=== PATIENT | female | born 1970 | race Two or more races ===

== ENCOUNTER 2017-12-23 20:13 | Inpatient (IN) | payer OTHER ==
[2017-12-23] MEDS: DEXTROSE 5%-0.45% NACL 1,000 ML IV (22:12)
[2017-12-24] MEDS: KETOROLAC 15 MG INJ IV ×3 (03:13→15:49)
[2017-12-24] MEDS ORDERED: NACL 0.9% 3 ML SYG IV (03:30)
[2017-12-24 05:13] LABS: ADD MAN DIFF? NO
[2017-12-24 05:22] LABS: WHITE BLOOD COUNT 9.5 10^3/ul (4.8-10.8)
[2017-12-24 05:22] LABS: BASOPHILS % 0.3 % (0.0-2.0); EOSINOPHILS # 0.1 10^3/ul (0.0-0.5); EOSINOPHILS % 1.4 % (0.0-7.0); HEMATOCRIT 33.6 % (37.0-47.0); HEMOGLOBIN 11.5 g/dl (12.0-16.0); LYMPHOCYTES # 1.3 10^3/ul (0.8-2.9); LYMPHOCYTES % 13.2 % (15.0-51.0); MEAN CORPUSCULAR HEMOGLOBIN 30.3 pg (29.0-33.0); MEAN CORPUSCULAR HGB CONC 34.2 g/dl (32.0-37.0); MEAN CORPUSCULAR VOLUME 88.4 fl (82.0-101.0); MEAN PLATELET VOLUME 10.7 fl (7.4-10.4); MONOCYTE # 0.6 10^3/ul (0.3-0.9); MONOCYTES % 6.2 % (0.0-11.0); NEUTROPHIL # 7.5 10^3/ul (1.6-7.5); NEUTROPHILS % 78.6 % (39.0-77.0); PLATELET COUNT 310 10^3/UL (140-415); RED CELL DISTRIBUTION WIDTH 16.1 % (11.5-14.5)
[2017-12-24 05:38] LABS: ALANINE AMINOTRANSFERASE 314 IU/L (13-69); ALBUMIN 3.6 g/dl (3.3-4.9); ALKALINE PHOSPHATASE 253 IU/L (42-121); ANION GAP 14 (8-16); ASPARTATE AMINO TRANSFERASE 139 IU/L (15-46); BILIRUBIN,INDIRECT 0.7 mg/dl (0-1.1); BILIRUBIN,TOTAL 2.3 mg/dl (0.2-1.3); BLOOD UREA NITROGEN 6 mg/dl (7-20); CARBON DIOXIDE 23 mmol/L (21-31); CHLORIDE 109 mmol/L (97-110); CREATININE 0.74 mg/dl (0.44-1.00); GLUCOSE 98 mg/dl (70-220); LIPASE 42 U/L (23-300); MAGNESIUM 1.7 mg/dl (1.7-2.5); PHOSPHORUS 3.2 mg/dl (2.5-4.9); POTASSIUM 3.5 mmol/L (3.5-5.1); SODIUM 142 mmol/L (135-144); TOTAL PROTEIN 6.6 g/dl (6.1-8.1)
[2017-12-24] MEDS: DEXTROSE 5%-0.45% NACL 1,000 ML IV ×2 (06:38→17:00)
[2017-12-24] MEDS ORDERED: LORAZEPAM 2 MG INJ IV (14:30)
[2017-12-24] MEDS: KETOROLAC 30 MG INJ IV (20:32)
[2017-12-24] MEDS: MULTIVITAMINS 10 ML, THIAMINE 100 MG, FOLIC ACID 1 MG in SOD CHLORIDE 0.9% 1,000 ML IVPB (20:33)
[2017-12-25] MEDS: morphine 2 MG INJ IV (03:05)
[2017-12-25 05:43] LABS: ADD MAN DIFF? NO
[2017-12-25 05:49] LABS: BASOPHILS % 0.3 % (0.0-2.0); EOSINOPHILS # 0.1 10^3/ul (0.0-0.5); EOSINOPHILS % 0.8 % (0.0-7.0); HEMATOCRIT 33.9 % (37.0-47.0); HEMOGLOBIN 11.6 g/dl (12.0-16.0); LYMPHOCYTES # 1.2 10^3/ul (0.8-2.9); LYMPHOCYTES % 12.6 % (15.0-51.0); MEAN CORPUSCULAR HEMOGLOBIN 30.2 pg (29.0-33.0); MEAN CORPUSCULAR HGB CONC 34.2 g/dl (32.0-37.0); MEAN CORPUSCULAR VOLUME 88.3 fl (82.0-101.0); MONOCYTE # 0.6 10^3/ul (0.3-0.9); MONOCYTES % 6.5 % (0.0-11.0); NEUTROPHIL # 7.8 10^3/ul (1.6-7.5); NEUTROPHILS % 79.4 % (39.0-77.0); PLATELET COUNT 304 10^3/UL (140-415); RED BLOOD COUNT 3.84 10^6/ul (4.20-5.40); RED CELL DISTRIBUTION WIDTH 16.2 % (11.5-14.5)
[2017-12-25 05:49] LABS: WHITE BLOOD COUNT 9.8 10^3/ul (4.8-10.8)
[2017-12-25 06:24] LABS: ALANINE AMINOTRANSFERASE 317 IU/L (13-69); ALBUMIN 3.9 g/dl (3.3-4.9); ALKALINE PHOSPHATASE 275 IU/L (42-121); ASPARTATE AMINO TRANSFERASE 199 IU/L (15-46); BILIRUBIN,TOTAL 3.2 mg/dl (0.2-1.3); TOTAL PROTEIN 7.2 g/dl (6.1-8.1)
[2017-12-25 06:40] LABS: ANION GAP 15 (8-16); BLOOD UREA NITROGEN 5 mg/dl (7-20); CALCIUM 9.4 mg/dl (8.4-10.2); CARBON DIOXIDE 24 mmol/L (21-31); CHLORIDE 107 mmol/L (97-110); CREATININE 0.64 mg/dl (0.44-1.00); GLUCOSE 88 mg/dl (70-220); MAGNESIUM 1.6 mg/dl (1.7-2.5); PHOSPHORUS 3.5 mg/dl (2.5-4.9); POTASSIUM 3.9 mmol/L (3.5-5.1); SODIUM 142 mmol/L (135-144)
[2017-12-25] MEDS: DEXTROSE 5%-0.45% NACL 1,000 ML IV ×3 (09:14→22:06)
[2017-12-25] MEDS: hydrALAzine 20 MG INJ IV (09:15)
[2017-12-25] MEDS: MAGNESIUM SULFATE 2 GM/50 ML 50 ML IVPB (10:38)
[2017-12-25] MEDS: KETOROLAC 30 MG INJ IV ×3 (10:39→22:12)
[2017-12-25 20:05] LABS: HEPATITIS B SURFACE ANTIGEN NEGATIVE (NEGATIVE)
[2017-12-25 20:22] LABS: HEPATITIS B SURFACE ANTIBODY NEGATIVE (NEGATIVE)
[2017-12-25 20:22] LABS: HEPATITIS C VIRAL ANTIBODY NEGATIVE (NEGATIVE)
[2017-12-25] MEDS: MULTIVITAMINS 10 ML, THIAMINE 100 MG, FOLIC ACID 1 MG in SOD CHLORIDE 0.9% 1,000 ML IVPB (20:26)
[2017-12-26] MEDS: morphine 2 MG INJ IV ×2 (02:59→13:22)
[2017-12-26] MEDS: DEXTROSE 5%-0.45% NACL 1,000 ML IV ×3 (04:49→23:57)
[2017-12-26 04:57] LABS: ADD MAN DIFF? NO
[2017-12-26 05:18] LABS: WHITE BLOOD COUNT 6.9 10^3/ul (4.8-10.8)
[2017-12-26 05:18] LABS: BASOPHILS % 0.4 % (0.0-2.0); EOSINOPHILS # 0.1 10^3/ul (0.0-0.5); EOSINOPHILS % 1.9 % (0.0-7.0); HEMATOCRIT 32.1 % (37.0-47.0); HEMOGLOBIN 11.2 g/dl (12.0-16.0); LYMPHOCYTES # 1.3 10^3/ul (0.8-2.9); LYMPHOCYTES % 18.2 % (15.0-51.0); MEAN CORPUSCULAR HEMOGLOBIN 30.3 pg (29.0-33.0); MEAN CORPUSCULAR HGB CONC 34.9 g/dl (32.0-37.0); MEAN CORPUSCULAR VOLUME 86.8 fl (82.0-101.0); MEAN PLATELET VOLUME 10.8 fl (7.4-10.4); MONOCYTE # 0.6 10^3/ul (0.3-0.9); MONOCYTES % 8.9 % (0.0-11.0); NEUTROPHIL # 4.8 10^3/ul (1.6-7.5); NEUTROPHILS % 70.2 % (39.0-77.0); PLATELET COUNT 304 10^3/UL (140-415); RED CELL DISTRIBUTION WIDTH 15.9 % (11.5-14.5)
[2017-12-26 05:47] LABS: ALANINE AMINOTRANSFERASE 302 IU/L (13-69); ALBUMIN 3.3 g/dl (3.3-4.9); ALKALINE PHOSPHATASE 282 IU/L (42-121); ANION GAP 15 (8-16); ASPARTATE AMINO TRANSFERASE 209 IU/L (15-46); BILIRUBIN,TOTAL 2.9 mg/dl (0.2-1.3); BLOOD UREA NITROGEN 5 mg/dl (7-20); CALCIUM 8.7 mg/dl (8.4-10.2); CARBON DIOXIDE 25 mmol/L (21-31); CHLORIDE 109 mmol/L (97-110); CREATININE 0.61 mg/dl (0.44-1.00); GLUCOSE 92 mg/dl (70-220); POTASSIUM 3.6 mmol/L (3.5-5.1); SODIUM 145 mmol/L (135-144); TOTAL PROTEIN 6.6 g/dl (6.1-8.1)
[2017-12-26] MEDS ORDERED: LIDOCAINE 2% (SDV) 5 ML INJ (07:00)
[2017-12-26] MEDS ORDERED: ONDANSETRON 4 MG INJ (07:00)
[2017-12-26] MEDS: MULTIVITAMINS 10 ML, THIAMINE 100 MG, FOLIC ACID 1 MG in SOD CHLORIDE 0.9% 1,000 ML IVPB (15:07)
[2017-12-26] MEDS ORDERED: IOHEXOL 300MG/ML 30 ML BTL (16:38)
[2017-12-26] MEDS ORDERED: EPHEDrine SULFATE 50 MG/5 ML SYG IV (17:00)
[2017-12-26] MEDS ORDERED: ONDANSETRON 4 MG INJ IV (17:00)
[2017-12-26] MEDS ORDERED: LABETALOL HCL 20MG INJ IV (17:00)
[2017-12-26] MEDS ORDERED: KETOROLAC 30 MG INJ IV (17:00)
[2017-12-26] MEDS ORDERED: METOCLOPRAMIDE 10 MG INJ IV (17:00)
[2017-12-26] MEDS ORDERED: DIPHENHYDRAMINE 50 MG INJ IV (17:00)
[2017-12-26] MEDS ORDERED: OXYCODONE/ACETAMINOPHEN (5/325) TAB PO ×2 (17:00)
[2017-12-26] MEDS ORDERED: FENTAnyl 50 MCG/ML VIAL IV ×3 (17:00)
[2017-12-26] MEDS ORDERED: HYDROmorphONE (0.2 MG/ML) 10ML SYG IV ×3 (17:00)
[2017-12-26] MEDS ORDERED: hydrALAzine 20 MG INJ IV (17:00)
[2017-12-26] MEDS ORDERED: ALBUTEROL 0.083% (NEB) 2.5 MG/3 ML AMP HHN (17:00)
[2017-12-26] MEDS ORDERED: MIDAZOLAM 1 MG/ML 2 ML INJ IV (17:00)
[2017-12-26] MEDS ORDERED: MEPERIDINE 25 MG INJ IV (17:00)
[2017-12-26] MEDS ORDERED: PROPOFOL 100 ML (17:03)
[2017-12-26] MEDS ORDERED: ROCURONIUM 50 MG INJ (17:05)
[2017-12-26] MEDS ORDERED: DEXAMETHASONE 4 MG/ML 1 ML INJ (17:56)
[2017-12-26] MEDS ORDERED: KETOROLAC 30 MG INJ (18:14)
[2017-12-26] MEDS ORDERED: SUGAMMADEX SODIUM 200 MG/2 ML VIAL IV (18:15)
[2017-12-26 22:53] LABS: INR 0.89; PROTIME 12.1 Sec (11.9-14.9); PT RATIO 0.9
[2017-12-27] MEDS: DEXTROSE 5%-0.45% NACL 1,000 ML IV ×2 (05:00→15:00)
[2017-12-27 05:11] LABS: ADD MAN DIFF? NO
[2017-12-27 05:18] LABS: BASOPHILS % 0.1 % (0.0-2.0); HEMATOCRIT 32.2 % (37.0-47.0); HEMOGLOBIN 10.8 g/dl (12.0-16.0); LYMPHOCYTES # 0.8 10^3/ul (0.8-2.9); LYMPHOCYTES % 9.1 % (15.0-51.0); MEAN CORPUSCULAR HEMOGLOBIN 29.5 pg (29.0-33.0); MEAN CORPUSCULAR HGB CONC 33.5 g/dl (32.0-37.0); MEAN PLATELET VOLUME 11.3 fl (7.4-10.4); MONOCYTE # 0.4 10^3/ul (0.3-0.9); MONOCYTES % 3.9 % (0.0-11.0); NEUTROPHIL # 7.8 10^3/ul (1.6-7.5); NEUTROPHILS % 86.5 % (39.0-77.0); PLATELET COUNT 329 10^3/UL (140-415); RED BLOOD COUNT 3.66 10^6/ul (4.20-5.40); RED CELL DISTRIBUTION WIDTH 16.4 % (11.5-14.5)
[2017-12-27 05:32] LABS: ALANINE AMINOTRANSFERASE 263 IU/L (13-69); ALBUMIN 3.3 g/dl (3.3-4.9); ALKALINE PHOSPHATASE 255 IU/L (42-121); ANION GAP 15 (8-16); ASPARTATE AMINO TRANSFERASE 148 IU/L (15-46); BILIRUBIN,INDIRECT 0.7 mg/dl (0-1.1); BILIRUBIN,TOTAL 1.6 mg/dl (0.2-1.3); BLOOD UREA NITROGEN 6 mg/dl (7-20); CALCIUM 9.1 mg/dl (8.4-10.2); CARBON DIOXIDE 26 mmol/L (21-31); CHLORIDE 108 mmol/L (97-110); CREATININE 0.63 mg/dl (0.44-1.00); GLUCOSE 139 mg/dl (70-220); MAGNESIUM 1.7 mg/dl (1.7-2.5); POTASSIUM 3.9 mmol/L (3.5-5.1); SODIUM 145 mmol/L (135-144); TOTAL PROTEIN 6.6 g/dl (6.1-8.1)
[2017-12-27] MEDS ORDERED: EPHEDrine SULFATE 50 MG/5 ML SYG (07:00)
[2017-12-27] MEDS: MULTIVITAMINS 10 ML, THIAMINE 100 MG, FOLIC ACID 1 MG in SOD CHLORIDE 0.9% 1,000 ML IVPB (09:21)
[2017-12-27] MEDS ORDERED: PROCHLORPERAZINE 10 MG INJ IV (12:00)
[2017-12-27] MEDS ORDERED: ONDANSETRON 4 MG INJ IV (12:00)
[2017-12-27] MEDS ORDERED: HYDROmorphONE (0.2 MG/ML) 10ML SYG IV ×3 (12:00)
[2017-12-27] MEDS ORDERED: DIPHENHYDRAMINE 50 MG INJ IV (12:00)
[2017-12-27] MEDS ORDERED: FENTAnyl 50 MCG/ML VIAL IV ×3 (12:00)
[2017-12-27] MEDS ORDERED: MEPERIDINE 25 MG INJ IV (12:00)
[2017-12-27] MEDS ORDERED: IOHEXOL 300MG/ML 30 ML BTL (12:07)
[2017-12-27] MEDS ORDERED: PROPOFOL 20 ML (12:29)
[2017-12-27] MEDS ORDERED: LIDOCAINE 2% (SDV) 5 ML INJ (12:29)
[2017-12-27] MEDS ORDERED: FENTAnyl 50 MCG/ML VIAL (12:29)
[2017-12-27] MEDS ORDERED: MIDAZOLAM 1 MG/ML 2 ML INJ (12:29)
[2017-12-27] MEDS ORDERED: SUCCINYLCHOLINE CHLORIDE 100 MG/5 ML SYG IV (12:29)
[2017-12-27] MEDS ORDERED: ROPIVACAINE 0.5 % 30 ML VIAL (12:37)
[2017-12-27] MEDS ORDERED: metroNIDAZOLE 500 MG/NS (PMX) 100 ML IVPB (12:58)
[2017-12-27] MEDS ORDERED: CEFAZOLIN 1 GM INJ (12:58)
[2017-12-27] MEDS ORDERED: FAMOTIDINE 20 MG INJ (13:01)
[2017-12-27] MEDS ORDERED: DEXAMETHASONE 4 MG/ML 1 ML INJ (13:01)
[2017-12-27] MEDS ORDERED: ONDANSETRON 4 MG INJ (13:01)
[2017-12-27] MEDS ORDERED: ACETAMINOPHEN 1000MG/100ML IV 100 ML (13:01)
[2017-12-27] MEDS ORDERED: SUGAMMADEX SODIUM 200 MG/2 ML VIAL IV (13:12)
[2017-12-27] MEDS ORDERED: hydrALAzine 20 MG INJ (13:29)
[2017-12-27] MEDS ORDERED: KETOROLAC 30 MG INJ (13:42)
[2017-12-27] MEDS ORDERED: HYDROmorphONE 2 MG/ML SYG (13:48)
[2017-12-27] MEDS ORDERED: HYDROCODONE/APAP (5/325) TAB PO (14:00)
[2017-12-27] MEDS: BUPIVACAINE 0.25% (MPF) 30 ML INJ (14:13)
[2017-12-27] MEDS: LIDOCAINE 1%/EPI 30 ML INJ (14:14)
[2017-12-27] MEDS: HYDROCODONE/APAP (5/325) TAB PO (20:18)
[2017-12-28] MEDS: DEXTROSE 5%-0.45% NACL 1,000 ML IV ×3 (00:36→21:00)
[2017-12-28] MEDS: HYDROCODONE/APAP (5/325) TAB PO ×2 (03:59→16:04)
[2017-12-28 05:12] LABS: ADD MAN DIFF? NO
[2017-12-28 05:18] LABS: BASOPHILS % 0.3 % (0.0-2.0); EOSINOPHILS % 0.2 % (0.0-7.0); HEMATOCRIT 28.8 % (37.0-47.0); HEMOGLOBIN 9.9 g/dl (12.0-16.0); LYMPHOCYTES % 18.9 % (15.0-51.0); MEAN CORPUSCULAR HEMOGLOBIN 31.5 pg (29.0-33.0); MEAN CORPUSCULAR HGB CONC 34.4 g/dl (32.0-37.0); MEAN CORPUSCULAR VOLUME 91.7 fl (82.0-101.0); MEAN PLATELET VOLUME 11.2 fl (7.4-10.4); MONOCYTE # 0.6 10^3/ul (0.3-0.9); MONOCYTES % 5.7 % (0.0-11.0); NEUTROPHIL # 7.9 10^3/ul (1.6-7.5); NEUTROPHILS % 74.4 % (39.0-77.0); PLATELET COUNT 308 10^3/UL (140-415); RED BLOOD COUNT 3.14 10^6/ul (4.20-5.40); RED CELL DISTRIBUTION WIDTH 17.5 % (11.5-14.5)
[2017-12-28 05:18] LABS: WHITE BLOOD COUNT 10.6 10^3/ul (4.8-10.8)
[2017-12-28 05:52] LABS: ALANINE AMINOTRANSFERASE 204 IU/L (13-69); ALBUMIN 3.2 g/dl (3.3-4.9); ALKALINE PHOSPHATASE 197 IU/L (42-121); ANION GAP 16 (8-16); ASPARTATE AMINO TRANSFERASE 105 IU/L (15-46); BILIRUBIN,INDIRECT 0.3 mg/dl (0-1.1); BILIRUBIN,TOTAL 0.3 mg/dl (0.2-1.3); BLOOD UREA NITROGEN 5 mg/dl (7-20); CALCIUM 8.9 mg/dl (8.4-10.2); CARBON DIOXIDE 26 mmol/L (21-31); CHLORIDE 109 mmol/L (97-110); CREATININE 0.67 mg/dl (0.44-1.00); GLUCOSE 123 mg/dl (70-220); MAGNESIUM 1.6 mg/dl (1.7-2.5); POTASSIUM 3.7 mmol/L (3.5-5.1); SODIUM 147 mmol/L (135-144); TOTAL PROTEIN 6.1 g/dl (6.1-8.1)
[2017-12-28] MEDS: MULTIVITAMINS 10 ML, THIAMINE 100 MG, FOLIC ACID 1 MG in SOD CHLORIDE 0.9% 1,000 ML IVPB (08:26)
[2017-12-28] MEDS: morphine 2 MG INJ IV (11:08)
[2017-12-28] MEDS: ACYCLOVIR 400 MG TAB PO (20:32)
[2017-12-28] MEDS: HYDROmorphONE 0.5 MG/0.5 ML SYG IV (20:38)
[2017-12-29] MEDS: HYDROCODONE/APAP (5/325) TAB PO ×2 (00:33→09:34)
[2017-12-29 05:36] LABS: ADD MAN DIFF? NO
[2017-12-29 05:46] LABS: BASOPHILS % 0.3 % (0.0-2.0); EOSINOPHILS # 0.1 10^3/ul (0.0-0.5); HEMATOCRIT 28.7 % (37.0-47.0); HEMOGLOBIN 9.5 g/dl (12.0-16.0); LYMPHOCYTES # 2.4 10^3/ul (0.8-2.9); LYMPHOCYTES % 26.7 % (15.0-51.0); MEAN CORPUSCULAR HEMOGLOBIN 30.1 pg (29.0-33.0); MEAN CORPUSCULAR HGB CONC 33.1 g/dl (32.0-37.0); MEAN CORPUSCULAR VOLUME 90.8 fl (82.0-101.0); MEAN PLATELET VOLUME 11.5 fl (7.4-10.4); MONOCYTE # 0.5 10^3/ul (0.3-0.9); MONOCYTES % 5.6 % (0.0-11.0); NEUTROPHILS % 66.1 % (39.0-77.0); PLATELET COUNT 322 10^3/UL (140-415); RED BLOOD COUNT 3.16 10^6/ul (4.20-5.40); RED CELL DISTRIBUTION WIDTH 17.2 % (11.5-14.5)
[2017-12-29 06:21] LABS: ALANINE AMINOTRANSFERASE 170 IU/L (13-69); ALBUMIN 3.2 g/dl (3.3-4.9); ALKALINE PHOSPHATASE 180 IU/L (42-121); ANION GAP 15 (8-16); ASPARTATE AMINO TRANSFERASE 72 IU/L (15-46); BILIRUBIN,INDIRECT 0.4 mg/dl (0-1.1); BILIRUBIN,TOTAL 0.4 mg/dl (0.2-1.3); BLOOD UREA NITROGEN 9 mg/dl (7-20); CALCIUM 8.9 mg/dl (8.4-10.2); CARBON DIOXIDE 25 mmol/L (21-31); CHLORIDE 107 mmol/L (97-110); CREATININE 0.62 mg/dl (0.44-1.00); GLUCOSE 81 mg/dl (70-220); MAGNESIUM 1.5 mg/dl (1.7-2.5); POTASSIUM 3.8 mmol/L (3.5-5.1); SODIUM 143 mmol/L (135-144); TOTAL PROTEIN 6.1 g/dl (6.1-8.1)
[2017-12-29] MEDS: DEXTROSE 5%-0.45% NACL 1,000 ML IV (06:52)
[2017-12-29] MEDS: ACYCLOVIR 400 MG TAB PO (09:34)
[2017-12-29] MEDS: LACTULOSE 30ML CUP PO (09:34)
[2017-12-29] MEDS: MULTIVITAMINS 10 ML, THIAMINE 100 MG, FOLIC ACID 1 MG in SOD CHLORIDE 0.9% 1,000 ML IVPB (09:37)
[2017-12-29] MEDS: ONDANSETRON 4 MG INJ IV (09:42)
== END 2017-12-29 19:30 | disposition home or self-care (01) | DRG 419 ==
LOC: MS1 20:13
PROC: 0FT44ZZ Resection of Gallbladder, Percutaneous Endoscopic Approach (ICD-10-PCS; principal; 2017-12-26 17:15)
PROC: 0FB04ZX Excision of Liver, Percutaneous Endoscopic Approach, Diagnostic (ICD-10-PCS; 2017-12-26 17:15)
PROC: 0FC98ZZ Extirpation of Matter from Common Bile Duct, Via Natural or Artificial Opening Endoscopic (ICD-10-PCS; 2017-12-26 17:15)
PROC: 0F798ZZ Dilation of Common Bile Duct, Via Natural or Artificial Opening Endoscopic (ICD-10-PCS; 2017-12-26 17:15)
DX: K80.70 Calculus of gallbladder and bile duct without cholecystitis without obstruction (principal); F32.9 Major depressive disorder, single episode, unspecified; F41.9 Anxiety disorder, unspecified; F10.10 Alcohol abuse, uncomplicated; R79.89 Other specified abnormal findings of blood chemistry; Z72.0 Tobacco use; E80.6 Other disorders of bilirubin metabolism
CPT/HCPCS: 71045; 74181; 74330; 80048; 80053; 80076; 83690; 83735; 84100; 84703; 85025; 85610; 86706; 86803; 87340; 88304; 88307; 88313

== ENCOUNTER 2019-05-13 03:25 | Inpatient (IN) | payer OTHER, MEDICAID ==
[2019-05-13] MEDS: ONDANSETRON 4 MG INJ IV (03:59)
[2019-05-13] MEDS: SOD CHLORIDE 0.9% 1,000 ML IV (03:59)
[2019-05-13] MEDS: HYDROmorphONE 1 MG/ML SYG IV ×5 (03:59→23:04)
[2019-05-13] MEDS: PIPER-TAZO 3.375 GM IV (PMX) 100 ML IVPB (04:00)
[2019-05-13 04:05] LABS: ADD MAN DIFF? NO
[2019-05-13 04:08] LABS: BASOPHILS % 0.3 % (0.0-2.0); EOSINOPHILS # 0.1 10^3/ul (0.0-0.5); EOSINOPHILS % 0.8 % (0.0-7.0); HEMOGLOBIN 12.3 g/dl (12.0-16.0); LYMPHOCYTES # 1.7 10^3/ul (0.8-2.9); LYMPHOCYTES % 14.6 % (15.0-51.0); MEAN CORPUSCULAR HEMOGLOBIN 30.8 pg (29.0-33.0); MEAN CORPUSCULAR HGB CONC 32.4 g/dl (32.0-37.0); MEAN CORPUSCULAR VOLUME 95.2 fl (82.0-101.0); MEAN PLATELET VOLUME 10.3 fl (7.4-10.4); MONOCYTE # 0.7 10^3/ul (0.3-0.9); NEUTROPHIL # 8.9 10^3/ul (1.6-7.5); NEUTROPHILS % 77.8 % (39.0-77.0); PLATELET COUNT 336 10^3/UL (140-415); RED BLOOD COUNT 3.99 10^6/ul (4.20-5.40); RED CELL DISTRIBUTION WIDTH 16.3 % (11.5-14.5)
[2019-05-13 04:08] LABS: WHITE BLOOD COUNT 11.4 10^3/ul (4.8-10.8)
[2019-05-13 04:29] LABS: ALANINE AMINOTRANSFERASE 14 IU/L (13-69); ALBUMIN 3.8 g/dl (3.3-4.9); ALBUMIN/GLOBULIN RATIO 1.08; ALKALINE PHOSPHATASE 58 IU/L (42-121); ANION GAP 8 (5-13); ASPARTATE AMINO TRANSFERASE 21 IU/L (15-46); BILIRUBIN,INDIRECT 0.3 mg/dl (0-1.1); BILIRUBIN,TOTAL 0.3 mg/dl (0.2-1.3); BLOOD UREA NITROGEN 14 mg/dl (7-20); CALCIUM 9.6 mg/dl (8.4-10.2); CARBON DIOXIDE 23 mmol/L (21-31); CHLORIDE 109 mmol/L (97-110); CREATININE 0.89 mg/dl (0.44-1.00); Estimated GFR > 60 mL/min (>60); GLUCOSE 105 mg/dl (70-220); LIPASE 131 U/L (23-300); POTASSIUM 4.1 mmol/L (3.5-5.1); SODIUM 140 mmol/L (135-144); TOTAL PROTEIN 7.3 g/dl (6.1-8.1)
[2019-05-13] MEDS ORDERED: ACETAMINOPHEN 325 MG TAB PO ×2 (06:00→07:30)
[2019-05-13] MEDS ORDERED: ONDANSETRON 4 MG INJ IV ×2 (06:00→07:30)
[2019-05-13] MEDS ORDERED: HYDROCODONE/APAP (5/325) TAB PO ×2 (07:30)
[2019-05-13] MEDS ORDERED: NACL 0.9% 3 ML SYG IV (07:30)
[2019-05-13] MEDS: HEPARIN 5,000 UNIT/1 ML VIAL SC ×2 (10:13→20:09)
[2019-05-13] MEDS: VANCOMYCIN 1.25 GM IN 0.9 % SOD CHLORIDE 250 ML IVPB (10:13)
[2019-05-13] MEDS: CEFEPIME 1GM/50 ML (PMX) 50 ML IVPB (20:06)
[2019-05-13] MEDS: VANCOMYCIN 750 MG (PMX) 250 ML IVPB (21:36)
[2019-05-14 00:50] LABS: ADD UMIC NO; UR ASCORBIC ACID NEGATIVE (NEGATIVE); UR BILIRUBIN (Dip) NEGATIVE (NEGATIVE); UR BLOOD (Dip) NEGATIVE (NEGATIVE); UR CLARITY CLEAR (CLEAR); UR COLOR YELLOW (YELLOW); UR GLUCOSE (Dip) NEGATIVE (NEGATIVE); UR KETONES (Dip) NEGATIVE (NEGATIVE); UR LEUKOCYTE ESTERASE (Dip) NEGATIVE Leu/ul (NEGATIVE); UR NITRITE (Dip) NEGATIVE (NEGATIVE); UR SPECIFIC GRAVITY (Dip) 1.017 (1.003-1.030); UR TOTAL PROTEIN (Dip) NEGATIVE (NEGATIVE); UR UROBILINOGEN (Dip) NEGATIVE (NEGATIVE)
[2019-05-14] MEDS: HYDROmorphONE 1 MG/ML SYG IV ×7 (03:07→23:10)
[2019-05-14 03:23] LABS: BARBITURATES Negative (NEGATIVE); BENZODIAZEPINES Negative (NEGATIVE); CANNABINOIDS Negative (NEGATIVE); COCAINE Negative (NEGATIVE); OPIATES Positive (NEGATIVE)
[2019-05-14 03:30] LABS: AMPHETAMINE/METHAMPHETAMINE POSITIVE (NEGATIVE)
[2019-05-14 06:02] LABS: ADD MAN DIFF? NO
[2019-05-14 06:11] LABS: WHITE BLOOD COUNT 10.4 10^3/ul (4.8-10.8)
[2019-05-14 06:11] LABS: BASOPHILS % 0.4 % (0.0-2.0); EOSINOPHILS # 0.1 10^3/ul (0.0-0.5); EOSINOPHILS % 0.8 % (0.0-7.0); HEMATOCRIT 35.5 % (37.0-47.0); HEMOGLOBIN 11.1 g/dl (12.0-16.0); LYMPHOCYTES # 1.5 10^3/ul (0.8-2.9); LYMPHOCYTES % 14.6 % (15.0-51.0); MEAN CORPUSCULAR HEMOGLOBIN 30.4 pg (29.0-33.0); MEAN CORPUSCULAR HGB CONC 31.3 g/dl (32.0-37.0); MEAN CORPUSCULAR VOLUME 97.3 fl (82.0-101.0); MEAN PLATELET VOLUME 10.1 fl (7.4-10.4); MONOCYTE # 0.7 10^3/ul (0.3-0.9); MONOCYTES % 6.4 % (0.0-11.0); NEUTROPHIL # 8.1 10^3/ul (1.6-7.5); NEUTROPHILS % 77.4 % (39.0-77.0); PLATELET COUNT 336 10^3/UL (140-415); RED BLOOD COUNT 3.65 10^6/ul (4.20-5.40); RED CELL DISTRIBUTION WIDTH 16.3 % (11.5-14.5)
[2019-05-14 06:53] LABS: ALANINE AMINOTRANSFERASE 16 IU/L (13-69); ALBUMIN 3.3 g/dl (3.3-4.9); ALBUMIN/GLOBULIN RATIO 1.13; ALKALINE PHOSPHATASE 60 IU/L (42-121); ANION GAP 7 (5-13); ASPARTATE AMINO TRANSFERASE 29 IU/L (15-46); BILIRUBIN,INDIRECT 0.3 mg/dl (0-1.1); BILIRUBIN,TOTAL 0.3 mg/dl (0.2-1.3); BLOOD UREA NITROGEN 10 mg/dl (7-20); CALCIUM 9.2 mg/dl (8.4-10.2); CARBON DIOXIDE 26 mmol/L (21-31); CHLORIDE 104 mmol/L (97-110); CREATININE 0.68 mg/dl (0.44-1.00); Estimated GFR > 60 mL/min (>60); GLUCOSE 116 mg/dl (70-220); MAGNESIUM 1.7 mg/dl (1.7-2.5); PHOSPHORUS 3.9 mg/dl (2.5-4.9); SODIUM 137 mmol/L (135-144); TOTAL PROTEIN 6.2 g/dl (6.1-8.1)
[2019-05-14] MEDS ORDERED: VANCOMYCIN IV PER PHARMACY XX (09:00)
[2019-05-14] MEDS: CEFEPIME 1GM/50 ML (PMX) 50 ML IVPB ×2 (09:16→21:04)
[2019-05-14] MEDS: HEPARIN 5,000 UNIT/1 ML VIAL SC (09:17)
[2019-05-14] MEDS: VANCOMYCIN 750 MG (PMX) 250 ML IVPB ×2 (10:31→22:15)
[2019-05-14] MEDS ORDERED: ALPRAZOLAM 0.5 MG TAB PO (14:00)
[2019-05-14 14:22] LABS: CA27.29 82 U/mL (<38)
[2019-05-14] MEDS: MUPIROCIN 2% 22 GM OINT TOP (21:04)
[2019-05-14 21:16] LABS: VANCOMYCIN,TROUGH 10.5 ug/ml (10.0-20.0)
[2019-05-15] MEDS: HYDROmorphONE 1 MG/ML SYG IV ×7 (02:04→23:46)
[2019-05-15 05:36] LABS: ADD MAN DIFF? NO
[2019-05-15 05:42] LABS: WHITE BLOOD COUNT 8.9 10^3/ul (4.8-10.8)
[2019-05-15 05:42] LABS: BASOPHIL # 0.1 10^3/ul (0.0-0.1); BASOPHILS % 0.6 % (0.0-2.0); EOSINOPHILS # 0.1 10^3/ul (0.0-0.5); EOSINOPHILS % 1.2 % (0.0-7.0); HEMATOCRIT 37.5 % (37.0-47.0); HEMOGLOBIN 11.7 g/dl (12.0-16.0); LYMPHOCYTES # 1.6 10^3/ul (0.8-2.9); LYMPHOCYTES % 18.1 % (15.0-51.0); MEAN CORPUSCULAR HGB CONC 31.2 g/dl (32.0-37.0); MEAN CORPUSCULAR VOLUME 96.2 fl (82.0-101.0); MEAN PLATELET VOLUME 10.1 fl (7.4-10.4); MONOCYTE # 0.6 10^3/ul (0.3-0.9); MONOCYTES % 6.8 % (0.0-11.0); NEUTROPHIL # 6.5 10^3/ul (1.6-7.5); NEUTROPHILS % 72.8 % (39.0-77.0); PLATELET COUNT 357 10^3/UL (140-415); RED CELL DISTRIBUTION WIDTH 15.9 % (11.5-14.5)
[2019-05-15 05:59] LABS: ANION GAP 7 (5-13); BLOOD UREA NITROGEN 15 mg/dl (7-20); CALCIUM 9.5 mg/dl (8.4-10.2); CARBON DIOXIDE 31 mmol/L (21-31); CHLORIDE 103 mmol/L (97-110); CREATININE 0.74 mg/dl (0.44-1.00); Estimated GFR > 60 mL/min (>60); GLUCOSE 116 mg/dl (70-220); POTASSIUM 3.8 mmol/L (3.5-5.1); SODIUM 141 mmol/L (135-144)
[2019-05-15] MEDS: MUPIROCIN 2% 22 GM OINT TOP ×2 (08:49→20:41)
[2019-05-15] MEDS: CEFEPIME 1GM/50 ML (PMX) 50 ML IVPB (08:49)
[2019-05-15] MEDS: VANCOMYCIN 750 MG (PMX) 250 ML IVPB ×2 (09:40→20:32)
[2019-05-15] MEDS: RIFAMPIN 300 MG CAP PO (13:11)
[2019-05-15] MEDS: DIPHENHYDRAMINE 25 MG CAP PO (20:32)
[2019-05-16] MEDS: HYDROmorphONE 1 MG/ML SYG IV ×6 (02:47→20:32)
[2019-05-16] MEDS: DIPHENHYDRAMINE 25 MG CAP PO ×2 (09:00→16:59)
[2019-05-16] MEDS: RIFAMPIN 300 MG CAP PO (09:00)
[2019-05-16] MEDS: MUPIROCIN 2% 22 GM OINT TOP ×2 (09:01→22:06)
[2019-05-16] MEDS: VANCOMYCIN 750 MG (PMX) 250 ML IVPB ×2 (09:01→21:46)
[2019-05-16] MEDS: BISACODYL (EC) 5 MG TAB PO (21:46)
[2019-05-16] MEDS: SENNA TAB PO (21:46)
[2019-05-17] MEDS: HYDROmorphONE 1 MG/ML SYG IV ×4 (00:06→09:21)
[2019-05-17] MEDS: DIPHENHYDRAMINE 25 MG CAP PO (08:51)
[2019-05-17] MEDS: SENNA TAB PO (08:52)
[2019-05-17] MEDS: RIFAMPIN 300 MG CAP PO (08:52)
[2019-05-17] MEDS: MUPIROCIN 2% 22 GM OINT TOP (09:21)
[2019-05-17] MEDS: VANCOMYCIN 750 MG (PMX) 250 ML IVPB (09:30)
[2019-05-17 09:38] LABS: BLOOD UREA NITROGEN 14 mg/dl (7-20)
[2019-05-17 09:38] LABS: CREATININE 0.76 mg/dl (0.44-1.00)
[2019-05-17 09:45] LABS: VANCOMYCIN,TROUGH 10.7 ug/ml (10.0-20.0)
== END 2019-05-17 11:55 | disposition home or self-care (01) | DRG 603 ==
LOC: E/R 03:25 → MS3 05-14 14:43
PROVIDERS: Internal Medicine
DX: L03.313 Cellulitis of chest wall (principal); C50.911 Malignant neoplasm of unspecified site of right female breast; C79.89 Secondary malignant neoplasm of other specified sites; B95.62 Methicillin resistant Staphylococcus aureus infection as the cause of diseases classified elsewhere; F41.9 Anxiety disorder, unspecified; F32.9 Major depressive disorder, single episode, unspecified; R59.1 Generalized enlarged lymph nodes
CPT/HCPCS: 36415; 71250; 76536; 76642; 80048; 80053; 80202; 80307; 81003; 82378; 82565; 83690; 83735; 84100; 84520; 85025; 86300; 87040-91; 87070; 87081; 96374; 96375; 99285-25

== ENCOUNTER 2019-07-04 02:01 | Emergency (ER) | payer OTHER, MEDICAID ==
[2019-07-04] MEDS: LACTATED RINGER'S 1,000 ML IV (03:52)
[2019-07-04] MEDS: HYDROmorphONE 1 MG/ML SYG IV (03:53)
[2019-07-04] MEDS: ONDANSETRON 4 MG INJ IV (03:53)
[2019-07-04 04:07] LABS: ADD MAN DIFF? NO
[2019-07-04 04:11] LABS: WHITE BLOOD COUNT 6.4 10^3/ul (4.8-10.8)
[2019-07-04 04:11] LABS: BASOPHILS % 0.6 % (0.0-2.0); EOSINOPHILS # 0.1 10^3/ul (0.0-0.5); EOSINOPHILS % 1.4 % (0.0-7.0); HEMATOCRIT 38.8 % (37.0-47.0); HEMOGLOBIN 12.6 g/dl (12.0-16.0); LYMPHOCYTES # 2.3 10^3/ul (0.8-2.9); LYMPHOCYTES % 36.2 % (15.0-51.0); MEAN CORPUSCULAR HEMOGLOBIN 30.7 pg (29.0-33.0); MEAN CORPUSCULAR HGB CONC 32.5 g/dl (32.0-37.0); MEAN CORPUSCULAR VOLUME 94.4 fl (82.0-101.0); MEAN PLATELET VOLUME 10.1 fl (7.4-10.4); MONOCYTE # 0.5 10^3/ul (0.3-0.9); MONOCYTES % 7.5 % (0.0-11.0); NEUTROPHIL # 3.5 10^3/ul (1.6-7.5); NEUTROPHILS % 54.1 % (39.0-77.0); PLATELET COUNT 331 10^3/UL (140-415); RED BLOOD COUNT 4.11 10^6/ul (4.20-5.40); RED CELL DISTRIBUTION WIDTH 14.3 % (11.5-14.5)
[2019-07-04 04:13] LABS: ADD UMIC YES; UR ASCORBIC ACID NEGATIVE (NEGATIVE); UR BACTERIA FEW /HPF (NONE SEEN); UR BILIRUBIN (Dip) NEGATIVE (NEGATIVE); UR BLOOD (Dip) NEGATIVE (NEGATIVE); UR CLARITY SLIGHTLY CLOUDY (CLEAR); UR COLOR YELLOW (YELLOW); UR GLUCOSE (Dip) NEGATIVE (NEGATIVE); UR KETONES (Dip) NEGATIVE (NEGATIVE); UR LEUKOCYTE ESTERASE (Dip) TRACE Leu/ul (NEGATIVE); UR NITRITE (Dip) NEGATIVE (NEGATIVE); UR RBC 0 /HPF (0-5); UR SPECIFIC GRAVITY (Dip) 1.009 (1.003-1.030); UR SQUAMOUS EPITHELIAL CELL FEW /HPF (FEW); UR TOTAL PROTEIN (Dip) NEGATIVE (NEGATIVE); UR UROBILINOGEN (Dip) NEGATIVE (NEGATIVE); UR WBC 10 /HPF (0-5)
[2019-07-04 04:29] LABS: ALANINE AMINOTRANSFERASE 13 IU/L (13-69); ALBUMIN 3.8 g/dl (3.3-4.9); ALBUMIN/GLOBULIN RATIO 1.11; ALKALINE PHOSPHATASE 68 IU/L (42-121); ANION GAP 5 (5-13); ASPARTATE AMINO TRANSFERASE 27 IU/L (15-46); BILIRUBIN,INDIRECT 0.2 mg/dl (0-1.1); BILIRUBIN,TOTAL 0.2 mg/dl (0.2-1.3); BLOOD UREA NITROGEN 16 mg/dl (7-20); CALCIUM 9.3 mg/dl (8.4-10.2); CARBON DIOXIDE 26 mmol/L (21-31); CHLORIDE 106 mmol/L (97-110); CREATININE 0.85 mg/dl (0.44-1.00); Estimated GFR > 60 mL/min (>60); GLUCOSE 100 mg/dl (70-220); LIPASE 135 U/L (23-300); SODIUM 137 mmol/L (135-144); TOTAL PROTEIN 7.2 g/dl (6.1-8.1)
== END 2019-07-04 06:11 | disposition home or self-care (01) ==
LOC: E/R 02:01
DX: C50.911 Malignant neoplasm of unspecified site of right female breast (principal); F17.210 Nicotine dependence, cigarettes, uncomplicated; R19.7 Diarrhea, unspecified; M79.18 Myalgia, other site
CPT/HCPCS: 36415; 71045; 80053; 81001; 83690; 85025; 96374; 96375; 99284-25